=== PATIENT | male | born 1990 | race Hispanic/Latino ===

== ENCOUNTER 2024-01-06 02:03 | Emergency (ER) | payer BC ==
[~2024-01-06] VITALS: Ht 172.7 cm; Wt 113.4 kg
[~2024-01-06 02:03] MED LIST: ACET-2247 PO; LEVO500T2 PO
--- NOTE | 2024-01-06 02:10 | NUR ---
PT DENIES S/H IDEATION DENIES DEPRESSION OR ANXIETY DENIES A/V HALLUCINATIONS
[2024-01-06] MEDS: 0.9%NACL 1000ML 1,000 ML IV ONE (02:50)
--- NOTE | 2024-01-06 03:04 | NUR ---
PATIENT DENIES ANY MEDICAL ISSUES, REPORTS WAS BROUGHT BY EMS DUE TO POLICE ADVISING HIM TO BE SEEN IN AN ED OR GO TO [facility]
[2024-01-06 03:14] LABS: BASOPHILS # (AUTO) 0.04 K/uL (0.00-0.20); BASOPHILS % (AUTO) 0.6 % (0.0-5.0); EOSINOPHILS # (AUTO) 0.12 K/uL (0.00-0.70); EOSINOPHILS % (AUTO) 1.7 % (0.0-8.0); IMMATURE GRANULOCYTE ABSOLUTE 0.03 K/uL (0-1); LYMPHOCYTES # (AUTO) 2.8 K/uL (1.0-4.8); LYMPHOCYTES % (AUTO) 38.8 % (21.0-51.0); MEAN CORPUSCULAR HEMOGLOBIN 31.3 pg (27.0-33.0); MEAN CORPUSCULAR HGB CONC 34.6 g/dL (32.0-36.0); MEAN CORPUSCULAR VOLUME 90.3 fL (79-99); MONOCYTES # (AUTO) 0.7 K/uL (0.1-1.0); MONOCYTES % (AUTO) 9.1 % (3.0-13.0); NEUTROPHILS # (AUTO) 3.6 K/uL (1.8-7.7); NEUTROPHILS % (AUTO) 49.4 % (40.0-77.0); PLATELET COUNT (AUTO) 309 K/uL (130-400); RED BLOOD CELL COUNT(AUTO) 4.32 MIL/uL (4.50-6.20); RED CELL DISTRIBUTION WIDTH 11.9 % (11.0-15.5); WHITE BLOOD COUNT (AUTO) 7.2 K/uL (4.8-10.8)
[2024-01-06 03:18] LABS: CARBON DIOXIDE 27 mmol/L (21-32); CHLORIDE 100 mmol/L (101-111); CREATININE 0.7 mg/dL (0.5-1.3); GLOMERULAR FILTR. RATE CALC 124 mL/min (>90); GLUCOSE,RANDOM 169 mg/dL (70-105); POTASSIUM 3.4 mmol/L (3.5-5.1); SODIUM SERUM 134 mmol/L (136-145); UREA NITROGEN, BLOOD 7 mg/dL (7-18)
[2024-01-06 03:22] LABS: ALCOHOL, BLOOD 252 mg/dL (0-10)
[2024-01-06 03:25] LABS: SALICYLATE < 2.8 mg/dL (2.8-20.0)
[2024-01-06 03:26] LABS: ACETAMINOPHEN < 1 mcg/mL (10-29)
--- NOTE | 2024-01-06 04:15 | ERN ---
General Chief Complaint: Other Problems Stated Complaint: NO COMPLAINT Time Seen by MD: 02:06 History of Present Illness Initial Comments Mr Rodriguez is a 33-year-old male significant past medical history of alcohol abuse who comes in today after being found in an alley. Patient apparently has been drinking heavily. He was found by the [place] police department and told to come to the ER for further evaluation and care. Patient currently has no complaints Allergies: Coded Allergies: No Known Drug Allergies (Verified Allergy, Unknown, 09/03/15) Home Meds Active Scripts Levofloxacin (Levaquin) 500 Mg Tablet, 500 MG PO DAILY, #5 TAB Prov:RASHAD BATRES MD 09/06/15 Reported Medications Acetaminophen (Tylenol) 325 Mg Tablet, 650 MG PO Q4HPRN PRN for PAIN LEVEL 1 TO 5, TAB 09/03/15 Past Medical History Past Medical History: No Pertinent History Past Surgical History: Cholecystectomy ROS Dictation Constitutional: Negative for fever,chills, and weight loss Eyes: Negative for injury, pain,redness, and discharge ENT: Negative for injury,pain or swelling Cardiovascular: Negative for chest pain, palpitations, and edema Respiratory: Negative for shortness of breath, cough, and wheezing, Abdomen/GI: Negative for abdominal pain, nausea, vomiting, diarrhea, and constipation Back: Negative for injury and pain : Negative for injury, bleeding and discharge MS/Extremity: Negative for injury and deformity Skin: Negative for rash, and discoloration Neuro: Positive for alcohol abuse Psych: Negative for suicide ideation, homicidal ideation, and hallucinations Physical Exam Physical Exam Dictation General: awake, alert, NAD Head/Face: Normocephalic, atraumatic Eyes: PERRL, ENT: oral cavity clear, Neck: Trachea midline, supple Cardiovascular: RRR, normal S1/S2, No MRGs, no JVD Respiratory: CTAB, no respiratory distress, Abdomen: Soft, non-tender, non-distended Skin: Warm, dry, normal turgor, no rash MS/Extremity: Pulses equal, no cyanosis Neuro: Intoxicated moving extremities spontaneously Results Laboratory and Microbiology Lab and Micro Result Laboratory Tests Test 01/06/24 02:58 White Blood Count 7.2 K/uL (4.8-10.8) Red Blood Count 4.32 MIL/uL (4.50-6.20) L Hemoglobin 13.5 g/dL (14.0-18.0) L Hematocrit 39.0 % (42-54) L Mean Corpuscular Volume 90.3 fL (79-99) Mean Corpuscular Hemoglobin 31.3 pg (27.0-33.0) Mean Corpuscular Hemoglobin Concent 34.6 g/dL (32.0-36.0) Red Cell Distribution Width 11.9 % (11.0-15.5) Platelet Count 309 K/uL (130-400) Mean Platelet Volume 9.8 fL (7.5-10.5) Immature Granulocyte % (Auto) 0.4 % (0-1) Neutrophils (%) (Auto) 49.4 % (40.0-77.0) Lymphocytes (%) (Auto) 38.8 % (21.0-51.0) Monocytes (%) (Auto) 9.1 % (3.0-13.0) Eosinophils (%) (Auto) 1.7 % (0.0-8.0) Basophils (%) (Auto) 0.6 % (0.0-5.0) Neutrophils # (Auto) 3.6 K/uL (1.8-7.7) Lymphocytes # (Auto) 2.8 K/uL (1.0-4.8) Monocytes # (Auto) 0.7 K/uL (0.1-1.0) Eosinophils # (Auto) 0.12 K/uL (0.00-0.70) Basophils # (Auto) 0.04 K/uL (0.00-0.20) Absolute Immature Granulocyte (auto 0.03 K/uL (0-1) Nucleated Red Blood Cells 0.0 % (0.0-0.19) Sodium Level 134 mmol/L (136-145) L Potassium Level 3.4 mmol/L (3.5-5.1) L Chloride Level 100 mmol/L (101-111) L Carbon Dioxide Level 27 mmol/L (21-32) Blood Urea Nitrogen 7 mg/dL (7-18) Creatinine 0.7 mg/dL (0.5-1.3) Glomerular Filtration Rate Calc 124 mL/min (>90) Random Glucose 169 mg/dL (70-105) H Total Calcium 8.5 mg/dL (8.5-10.1) Salicylates Level < 2.8 mg/dL (2.8-20.0) L Acetaminophen Level < 1 mcg/mL (10-29) L Serum Alcohol 252 mg/dL (0-10) H MDM Patient has elevated alcohol level but does have sister who can take him home and take care of him. Patient will be discharged on her care. MDM: Differential diagnosis: Alcohol intoxication Rationale: Tests considered and ordered secondary to shared decision making include: Previous outside records reviewed: Old ER visits. Risk of complication and/or morbidity or mortality of patient management: None Medications-Per medication reconciliation Need for hospitalization: Patient does not meet criteria for hospitalization. Need for emergency major/minor surgery: No There are no social concerns with this patient. Prescription drug management Prescriptions will include symptomatic care Patient's prior external medical records from other ER visits were reviewed by me as indicated. Prior testing and results from previous visits were reviewed. Prior tests were taken into account with medical decision making and resource utilization, independent historian/historians were used to obtain complete medical history. I independently interpreted the test that were performed, results were reviewed by me and considered findings on radiology if ordered. Medical management and examination interpretation discussions were had by me with other qualified healthcare professionals as indicated for the patient's care. ED Course Orders Procedure Category Date Status Time Cbc With Differential LAB 01/06/24 Complete 02:18 Alcohol, Blood LAB 01/06/24 Complete 02:18 Salicylate LAB 01/06/24 Complete 02:18 Acetaminophen LAB 01/06/24 Complete 02:18 Urinalysis Profile LAB 01/06/24 Logged 02:18 0.9%Nacl 1000ml (Ns PHA 01/06/24 In Process 1000ml) 02:30 Basic Metabolic Panel LAB 01/06/24 Complete 02:18 Current Medications Medications (Trade) Dose Ordered Sig/Sarah Route PRN Reason Start Time Stop Time Status Last Admin Dose Admin Sodium Chloride 1,000 ml @ 125 mls/hr ONCE ONCE IV 01/06/24 02:30 01/06/24 10:29 01/06/24 02:50 Vital Signs Date Time Temp Pulse Resp B/P (MAP) Pulse Ox O2 Delivery O2 Flow Rate FiO2 01/06/24 03:02 84 17 117/73 98 Room Air* 0 21 01/06/24 02:04 96.8 85 16 123/81 100 Room Air DX & DISP Disposition: Discharge Departure Impression: Primary Impression: Alcohol intoxication Condition: Stable Additional Instructions: Please follow up with your primary care physician in the next 1-7 days for continuance of care. Please stop drinking alcohol. Referrals: SELF,REFERRAL (PCP) BEBETO ROSENBERG MD Jan 06, 2024 04:15
[2024-01-06 04:26] VITALS: BP 119/71; PULSE 91; RESP 19; TEMP 98.4; O2SAT 96
== END 2024-01-06 04:32 | disposition home or self-care (01) ==
LOC: EDH 02:03
DX: F10.129 Alcohol abuse with intoxication, unspecified (principal); Z90.49 Acquired absence of other specified parts of digestive tract
CPT/HCPCS: 99283; 80048; 85025; 36415; G0481; J7030